=== PATIENT | female | born 1965 | race Caucasian/White ===

== ENCOUNTER 2020-07-05 17:12 | Outpatient (RCR) | payer OTHER, SELFPAY ==
[2020-07-05] MEDS: COVID-19 VACC, MRNA(PFIZER)/PF 30 MCG/0.3 ML SYRINGE IM (17:29)
[2020-07-26] MEDS: COVID-19 VACC, MRNA(PFIZER)/PF 30 MCG/0.3 ML SYRINGE IM (17:00)
== END 2020-07-05 23:59 ==
LOC: IMMUN 17:12
PROVIDERS: PCP Student in an Organized Health Care Education/Training Program; Referring Provider Family Medicine; Visit Provider Family Medicine
DX: Z23 Encounter for immunization (principal)
CPT/HCPCS: 0001A; 0002A; 91300

== ENCOUNTER → 2021-02-06 08:09 | Outpatient (CLI) | payer OTHER, SELFPAY ==
--- NOTE | 2021-02-06 | FLU_PTH ---
PATIENT: CAITLIN DALAL LOC: [facility] U#:[id number] AGE/SX: 59/F ROOM: RE02/06/[address]: Dr. Merritt Ace MD : 1965 BED: DIS: SPEC #: [id number] RECD: 02/07/21 08:29 STATUS: CHATA REMari #: [id number] JONATHAN: 02/06/21 00:[address]: Merritt Ace DEPT: CYTOLOGY RECD BY: Haider Cox ENTERED: 02/07/21 08:31 SP TYPE: Fluid OTHR DR: Dr. Jeffry Moreira DO Tissues: A - Thyroid gland, NOS B - Thyroid gland, NOS Procedures: Special Stain Group II Surgery Specimen Level IV Cytospin Fluid HEADER OPERATION: Ultrasound-guided fine needle aspiration left thyroid PRE-OP DIAGNOSIS: Thyroid nodule TISSUE SUBMITTED: A - FNA, left thyroid nodule fluid for cytology, B - FNA, left thyroid nodule x12 slides DIAGNOSIS CYTOLOGY A. Fine needle aspiration, left thyroid nodule (cytospin and cell block): Negative for malignant cells. See comment. B. Fine needle aspiration, left thyroid nodule (smears): Adequate for evaluation. Negative, consistent with benign follicular nodule. AM:antelmo 02/08/2021 COMMENT A. The specimen primarily contains blood and scattered polymorphous lymphocytes. CYTOLOGY STUDY Slides are reviewed. CYTOLOGY GROSS A - Received is 30 ml of red cloudy fluid labeled with the patient's name and and designated per the requisition as left thyroid nodule. Submitted for cytology preparation including cell block. B - Received are 12 smears labeled with the patient's name and designated per the requisition as left thyroid nodule. Submitted for staining. / antelmo 02/07/2021 TC:5 CPT: 99484, 98543, 31482
== END ==
PROVIDERS: PCP Student in an Organized Health Care Education/Training Program; Referring Provider Surgery; Visit Provider Surgery
DX: E04.1 Nontoxic single thyroid nodule (principal)
CPT/HCPCS: 88108; 88305; 88313

== ENCOUNTER 2021-05-17 10:03 | Emergency (ER) | payer OTHER, SELFPAY ==
[2021-05-17 10:05] VITALS: BP 164/88; PULSE 118; RESP 17; TEMP 35.4; O2SAT 98; BMI 36.0
--- NOTE | 2021-05-17 10:44 | EX.ED.DYSGE1 ---
HPI History of Present Illness Chief Complaint: Nosebleed Informant: patient Narrative Narrative: Patient is having right-sided epistaxis. She has had this off and on about every 6 months or so. She states a week ago she was cleaning her nose because she had mild congestion which is not uncommon. She used a twisted tissue in the nose. This started nosebleed. Since then she has had about 1 nosebleed a day. It lasts anywhere from a few minutes to this 1 is been going off and on for almost an hour. She is on no blood thinners including aspirin or nonsteroidals. She has not been having fevers chills. No other areas of bleeding. No pain. Compression makes it better. Nothing really makes it worse. She also does have forced air heat at home. She uses BiPAP at night. She just started using humidified option this week but that was after the nosebleed started. [facility] Medical History (Updated 05/17/21 @ 12:[address] Deo Dillon MD) BiPAP (biphasic positive airway pressure) dependence Diabetes Sleep apnea Thyroid nodule Home Medications omega-3 fatty acids-vitamin E [Fish Oil] 1 cap PO DAILY 05/17/21 [History Last Taken Unknown] Allergy/AdvReac Type Severity Reaction Status Date / Time amoxicillin Allergy Vomiting Verified 05/17/21 10:03 Social History Smoking Status: Never smoker ROS ROS ED Constitutional Constitutional ED: Denies chills or fever(s) ENT ENT ED: Reports other Details: See history of present illness ; Denies sore throat Respiratory/Chest Respiratory/Chest: Denies cough Gastrointestinal Gastrointestinal: Denies nausea or vomiting Genitourinary Genitourinary ED: Denies hematuria Integumentary Denies rash Allergic/Immunologic Allergic/Immunologic ED: Denies urticaria EXAM Physical Exam Const Vital Signs: 05/17/21 10:05 05/17/21 12:16 Temperature 95.7 F L Temperature Source Temporal Pulse Rate 118 H 91 Respiratory Rate 17 16 Blood Pressure 164/88 H 155/88 H Blood Pressure Mean 113 Pulse Ox 98 94 Oxygen Delivery Method Room Air Positive well nourished and well developed General Appearance ED: well developed and NAD; Negative for cyanotic, diaphoretic or pallor HEENT Reports moist mucous membranes HEENT Narrative: Patient has a nasal clamp on the naris. No active bleeding. Minimal pink coloration posterior pharynx. But no active bleeding. No facial abnormalities or rashes. No erythema or swelling. Eyes PERRL and EOMs intact bilaterally Neck supple and no JVD Resp normal respiratory effort Neuro oriented x3 Sensorium / Orientation: alert Psych mental status grossly normal Skin no rashes or lesions noted and no wounds Skin Narrative: No petechiae or purpura. General Skin Exam: Negative for pallor [facility] MDM MDM Narrative Medical decision making narrative: Procedure: Control of epistaxis right-sided: I discussed options with the patient. The nasal clamp was removed. There was some mild dried blood but no active bleeding anymore. We sprayed a mixture of Afrin and 4% lidocaine in both nostrils. We let this rest. I then examine the nose. The left side is completely clear. There is no dried or active blood. The right side has some dried blood and irritated anterior mucosa in Kiesselbach's plexus. No active bleeding. We then discussed options of treatment. We discussed putting a nasal rocket in. She would like to avoid this with her CPAP as well is just the discomfort. I explained that we could use spray thrombin. It statistically has the same success rate. We did spray the thrombin in that side. We have let her rest. She will be walked. As long as there is no rebleeding we will get her home. We had a long talk about ongoing care. She should avoid touching blowing heart putting anything in the nose. No pulling pushing lifting or straining. She should avoid the cold air as it is quite dry. She will get a coolmist humidifier and put it in her office during the day or what ever room she is and also her bedroom at night. If she has repeat bleeding she may need to follow-up. We will refer her to Dr. Ramires. Procedures Other Procedures Procedure(s): See MDM for control of epistaxis Discharge Plan Triage Chief Complaint: Nosebleed ED Provider: Deo Dillon Dx/Rx/DC Orders Clinical Impression: Right-sided epistaxis Instructions: Nosebleed Prescriptions: No Action Fish Oil 1,000 mg Capsule 1 cap PO DAILY RF: 0 Primary Care Provider: Jeffry Moreira Referrals: Wilder Ramires MD [STAFF PHYSICIAN] - 3-5 Days Jeffry Moreira DO [Primary Care Provider] - Disposition Disposition: Home, Self Care Discharge Date/Time: 05/17/21 12:18
[2021-05-17] MEDS: Lidocaine 4% 50 ML Bottle TOPICAL (10:50)
[2021-05-17] MEDS: Oxymetazoline 0.05% 1 SPRAY SPRAY.BTL 2 SPRAY NASAL (10:50)
[2021-05-17 12:16] VITALS: BP 155/88; PULSE 91; RESP 16; O2SAT 94
[2021-05-17] MEDS: Thrombin 5,000 IU Kit (PSA) 5,000 IU Vial 5000 IU TOPICAL (12:17)
== END 2021-05-17 12:18 | disposition home or self-care (01) ==
PROVIDERS: Emergency Provider Emergency Medicine; PCP Student in an Organized Health Care Education/Training Program; Visit Provider Emergency Medicine
DX: R04.0 Epistaxis (principal); G47.30 Sleep apnea, unspecified
CPT/HCPCS: 30901; 99282

== ENCOUNTER 2021-10-12 20:12 | Emergency (ER) | payer OTHER, SELFPAY ==
[2021-10-12 20:12] VITALS: BP 156/72; PULSE 98; RESP 16; TEMP 36.6; O2SAT 100; BMI 33.9
--- NOTE | 2021-10-12 20:34 | EX.ED.UPPERE ---
HPI History of Present Illness HPI Narrative: Right index finger laceration. Chief Complaint: Laceration Informant: patient Occured/Mechanism Mechanism/Context: Yes injury Onset/Context/Timing Onset: Today and Hours Context: Sudden Onset Timing: Continuous Current Severity: Mild Maximum Severity: Mild Narrative Narrative: 35-year-old diabetic female was cutting open a package when she has a lacerated the radial side of the proximal phalanx of her right index finger. She denies other complaints. Tetanus is up-to-date. Tetanus Immunization: 5-10 years Prior similar symptoms: No Recent Illness/Hospitalization: No PFSH PFSH Medical History BiPAP (biphasic positive airway pressure) dependence Diabetes Sleep apnea Thyroid nodule Home Medications omega-3 fatty acids-vitamin E 1,000 mg capsule 1 cap PO DAILY 05/17/21 [History Last Taken Unknown] Allergy/AdvReac Type Severity Reaction Status Date / Time amoxicillin Allergy Vomiting Verified 10/12/21 20:14 Social History Smoking Status: Never smoker ROS ROS ED ROS Narrative Denies recent illness. Review of Systems ROS Unobtainable: Denies due to encephalopathy Constitutional Constitutional ED: Denies chills Eyes Eyes: Denies blurry vision ENT ENT ED: Denies ear pain Cardiovascular Cardiovascular: Denies chest pain Respiratory/Chest Respiratory/Chest: Denies cough Gastrointestinal Gastrointestinal: Denies abdominal pain Genitourinary Genitourinary ED: Denies dysuria Musculoskeletal Musculoskeletal: Denies back pain Integumentary Denies abscess Neurologic Neurologic: Denies headache(s) Psychiatric Psychiatric: Denies anxiety Endocrine Endocrinology: Denies cold intolerance Hematologic/Lymphatic Hematologic/Lymphatic: Denies easy bleeding Allergic/Immunologic Allergic/Immunologic ED: Denies mouth swelling EXAM Physical Exam Narrative Exam Narrative: Appearing 55-year-old female. Vital signs stable afebrile. Right index finger has about 1-1/2 to 2 cm laceration. It does not gape. There is no active bleeding. Has full flexion-extension to the right index finger. There is no signs of infection or foreign body. Otherwise exam unremarkable. Const Vital Signs: 10/12/21 20:12 Temperature 97.9 F Temperature Source Temporal Pulse Rate 98 Respiratory Rate 16 Blood Pressure 156/72 H Blood Pressure Mean 100 Pulse Ox 100 Oxygen Delivery Method Room Air Positive well nourished and well developed; Negative for cachectic, contractures or unkempt General Appearance ED: well developed; Negative for unkempt, cachectic or contractures Nutritional Appearance: Negative for cachectic HEENT Reports moist mucous membranes normocephalic and atraumatic; Negative for trauma or tenderness Eyes PERRL and EOMs intact bilaterally Neck full ROM and supple General: Negative for tenderness Lymph Lymphatic: Negative for other Chest Wall inspection of chest normal and palpation of chest normal Resp normal respiratory effort Cardio regular rate, regular rhythm, S1 normal heart sound, S2 normal heart sound and no murmurs GI non-tender, non-distended and no masses Extremity normal to inspection and full ROM Extremity Narrative: Laceration right index finger. Full range of motion. No active bleeding. Dried blood. Neuro oriented x3, moves all extremities, no focal motor deficits and no sensory deficits noted Sensorium / Orientation: alert, oriented to person, oriented to place and oriented to time; Negative for orientation impaired, lethargic or stuporous Motor Exam: strength 5/5 throughout Psych mental status grossly normal Appearance: Negative for unkempt Attitude: No agitated Mood & Affect: Negative for depressed or anxious Skin Lesions: no lesions Rashes: no rashes Trauma: laceration; Negative for no lacerations or abrasions MDM MDM MDM Narrative Medical decision making narrative: Right index finger laceration. It superficial not deep. Area be cleaned. Dermabond and Steri-Stripped and she will be discharged to home. Instructed on wound care. Discharge Plan Triage Chief Complaint: Laceration ED Provider: Brooks Duong Dx/Rx/DC Orders Clinical Impression: Laceration of finger, index, History of diabetes mellitus Instructions: ED Laceration, Extremity: Skin Glue Prescriptions: No Action Fish Oil 1,000 mg Capsule 1 cap PO DAILY Primary Care Provider: Jeffry Moreira Referrals: Jeffry Moreira DO [Primary Care Provider] - As Needed Activity Restrictions/Additional Instructions: Watch for signs of infection such as redness, swelling, streaks, fever or pus is seen reevaluated. Steri-Strips can come off in a week if that will fall off on their own. Disposition Disposition: Home, Self Care
== END 2021-10-12 20:46 | disposition home or self-care (01) ==
PROVIDERS: Emergency Provider Emergency Medicine; PCP Student in an Organized Health Care Education/Training Program; Visit Provider Emergency Medicine
DX: S61.210A Laceration without foreign body of right index finger without damage to nail, initial encounter (principal); G47.30 Sleep apnea, unspecified; X58.XXXA Exposure to other specified factors, initial encounter
CPT/HCPCS: 99283

== ENCOUNTER 2024-07-23 17:23 | Observation (INO) | payer OTHER, SELFPAY ==
[2024-07-23] VITALS (9 sets, daily range): BP systolic 141–174; BP diastolic 74–99; PULSE 81–93; RESP 16–24; TEMP 36.4–36.9; O2SAT 95–99; BMI 35.0; BMI 34.7
--- NOTE | 2024-07-23 17:44 | EKG12_ITS ---
Test Reason : Blood Pressure : */* mmHG Vent. Rate : 93 BPM Atrial Rate : 93 BPM P-R Int : 174 ms QRS Dur : 80 ms QT Int : 348 ms P-R-T Axes : 45 -19 60 degrees QTcB Int : 432 ms Normal sinus rhythm Cannot rule out Anterior infarct , age undetermined Abnormal ECG Confirmed by KAREN BRANNON, HANS ([id number]), sports editor GRADY MCDONOUGH ([id number]) on 07/24/2024 9:46:49 AM Referred By: Confirmed By: HANS JONES MD
--- NOTE | 2024-07-23 17:44 | CT_ITS ---
EXAM: STROKE BRAIN/HEAD WITHOUT CONT CLINICAL HISTORY: 58 y/o F with NEURO DEFICIT, ACUTE, STROKE SUSPECTED. COMPARISON: None. TECHNIQUE: Routine CT imaging of the head without IV contrast. Additional multiplanar reformats were obtained. Dose reduction techniques were used including intermediate exposure control (AEC),iterative reconstruction technique, and/or mA and/or KV dose adjustments based on patient's size. FINDINGS: No acute intracranial hemorrhage or herniation. Minimal scattered supratentorial white matter hypodensities. The [place]-white matter interfaces are otherwise maintained. No ventriculomegaly. The basal cisterns are patent. The orbits, visualized paranasal sinuses and mastoids are unremarkable. No acute calvarial fracture or scalp hematoma. CT/STROKE Brain/Head without Cont IMPRESSION: No acute intracranial finding. Reading Location: [id number]
--- NOTE | 2024-07-23 17:45 | CT_ITS ---
PROCEDURE: STROKE CTA HEAD AND NECK W/CON 07/23/2024 REASON FOR EXAM: NEURO DEFICIT, ACUTE, STROKE SUSPECTED TECHNIQUE: CTA imaging of the head and neck from the aortic arch to the skull vertex with intravenous contrast. Coronal and Sagittal reconstruction series were provided. 3D, 3D post processing, 3D reconstructions, Maximum intensity projection (MIPs) Volume rendering and Shaded surface rendering was provided. CONTRAST: Isovue 370 VOLUME: 100 mL One or more dose reduction techniques were used (e.g., Automated exposure control, adjustment of the mA and/or kV according to patient size, use of iterative reconstruction technique). RADIATION DOSE SUMMARY: CTDlvol: 150 mGy DLP: 1500 mGycm COMPARISON: Same-day CT head. FINDINGS: See same day CT head for discussion of nonvascular findings. Patent, three-vessel aortic arch without calcification. The bilateral vertebral arteries are widely patent. No calcific plaque of the bilateral cervical carotid arteries. 0% stenosis by NASCET criteria. The bilateral carotid siphons are widely patent. The bilateral anterior, middle and posterior cerebral arteries are widely patent. No focal stenosis or occlusion. No aneurysm or AVM. Major venous structures: Unremarkable. Other findings: Cervical spondylosis. Prior dental amalgams. CT/STROKE CTA Head AND Neck W/Con IMPRESSION: 1. No large vessel occlusion, aneurysm or AVM. 2. No significant stenosis or calcific plaque. Reading Location: [facility]
--- NOTE | 2024-07-23 17:47 | EX.ED.DYSGE1 ---
HPI History of Present Illness Chief Complaint: Dizziness Narrative Narrative: Patient is a 58-year-old female with a past medical history of peripheral vertigo, diabetes, OSIRIS who presented to the emergency department the chief complaint of dizziness. Patient states that this felt different than her typical vertigo symptoms. She states that yesterday at 4:30 AM she woke up and she was extremely dizzy she states that she thought her cat went back to bed she states that when she woke up at 6:30 AM she was still very dizzy she states that she went to bed the evening before that at 10:30 PM was completely normal. Patient states that she tried to take Antivert this morning that she had leftover which seemed to help her symptoms some. She states that anytime she gets up and tries to walk she is very dizzy and has difficulty walking states if she turns her head left or right she is dizzy as well. Patient states that this is once again slightly different than her typical vertigo. [facility] Medical History (Updated 07/23/24 @ 22:[address] Juan Miguel Cummings DO) Obesity OSIRIS treated with BiPAP Anxiety and depression BPPV (benign paroxysmal positional vertigo) HLD (hyperlipidemia) Thyroid nodule Diabetes Home Medications ?Medication ?Instructions ?Recorded ?Last Taken ?Type omega-3 fatty acids-vitamin E 1 cap PO DAILY 05/17/21 Unknown History 1,000 mg capsule dulaglutide 1.5 mg/0.5 mL 1.5 mg subcut QWEEK 07/23/24 Unknown History subcutaneous pen injector (Trulicity) escitalopram oxalate 20 mg tablet 20 mg PO DAILY 07/23/24 Unknown History metformin 500 mg tablet PO 07/23/24 Unknown History rosuvastatin 10 mg tablet 10 mg PO QHS 07/23/24 Unknown History Allergy/AdvReac Type Severity Reaction Status Date / Time amoxicillin Allergy Vomiting Verified 07/23/24 17:24 Social History Smoking Status: Never smoker ROS ROS ED ROS Narrative Constitutional: Complains of dizziness as noted above denies fevers or chills, headaches Eyes: Denies double vision blurry vision change in vision Cardiovascular: Denies chest pain or palpitations Respiratory: Denies cough shortness of breath Abdomen: Complains of nausea denies vomiting or diarrhea : Denies any urinary symptoms Neurological: Denies numbness, weakness, tingling Musculoskeletal: Denies back pain Skin: Denies rashes or lesions EXAM Physical Exam Narrative Exam Narrative: General: Patient is lying in bed rest comfortably did not appear to be acute distress Head: Atraumatic, normocephalic Eyes: PERRL bilateral, EOMI bilateral, no conjunctival injection noted Neck: Soft, supple, trachea midline Cardiovascular: Regular rate and rhythm no murmurs gallops rubs noted Respiratory: Clear to auscultation bilaterally Abdomen: Soft, nondistended, nontender to palpation Extremities: +5/5 strength noted in the bilateral upper and lower extremities, radial pulses +2/4 in the bilateral extremities, no pedal edema no exam Neurological: Patient following commands knew that she was at [facility] year is 2024. NIH of 0 GCS 15. Patient completed finger-nose and [id number] test bilaterally Skin: Warm, dry, intact no rashes or lesions noted Const Vital Signs: 07/23/24 17:24 07/23/24 17:44 07/23/24 18:23 Temperature 98.5 F Temperature Source Oral Pulse Rate 93 85 Respiratory Rate 16 20 H Blood Pressure 174/99 H 141/86 H Blood Pressure Mean 124 104 Pulse Ox 98 97 Oxygen Delivery Method Room Air Room Air Room Air 07/23/24 19:20 07/23/24 20:00 07/23/24 21:00 Temperature Temperature Source Pulse Rate 92 82 86 Respiratory Rate 18 24 H 20 H Blood Pressure 141/77 H 155/82 H 148/74 H Blood Pressure Mean 98 106 98 Pulse Ox 95 97 97 Oxygen Delivery Method Room Air Room Air MDM [facility] MDM Narrative Medical decision making narrative: Patient is a 58-year-old female who presented to the emergency department the chief complaint of dizziness and vertigo type symptoms. Once again the patient states that her vertigo symptoms are different than her typical vertigo symptoms therefore we will work this up further. On the differential diagnose includes but not limited to large vessel occlusion, ischemic stroke, intracranial hemorrhage, carotid artery dissection. Once workup is obtained reviewed she will be reevaluated. Patient be given Antivert and Zofran. hip patient CBC reviewed and showed no evidence leukocytosis white blood count of 8.9, hemoglobin 14.5, plate count was noted be 306. Patient INR normal at 0.9, PT of 12.3. Patient sodium normal 140, potassium low at 3.9, creatinine was 0.56. Patient's troponin was less than 6 with a delta troponin of less than 6 patient's EKG reviewed and showed sinus rhythm with a rate of [address] head and brain without contrast reviewed showed no acute intracranial finding. Patient CTA head and neck showed no large vessel occlusion aneurysm or AVM. No significant stenosis or calcific plaque. On reevaluation the patient she is feeling better however given that she states that this felt different than her typical vertigo will discussed with hospitalist for admission. Patient given 325 mg aspirin. Patient case discussed with the hospitalist Dr. Boykin who accept patient for admission. Patient notified is agreeable to plan all questions were answered. Lab Data Labs: Laboratory Results - last 24 hr 07/23/24 07/23/24 18:06 20:20 WBC 8.9 RBC 4.61 Hgb 14.5 Hct 42.9 MCV 93.1 MCH 31.5 MCHC 33.8 RDW Std Deviation 41.2 RDW Coeff of Mari 12.0 Plt Count 306 MPV 8.9 Immature Gran % (Auto) 0.500 Neut % (Auto) 56.7 Lymph % (Auto) 33.6 Mason % (Auto) 5.9 Eos % (Auto) 2.6 Baso % (Auto) 0.7 Absolute Neuts (auto) 5.0 Absolute Lymphs (auto) 2.98 Nucleated RBC % 0 PT 12.3 INR 0.9 APTT 26.1 Sodium 140 Potassium 3.9 Chloride 101 Carbon Dioxide 26.3 Anion Gap 13 BUN 7 Creatinine 0.56 L Estim Creat Clear Calc 129.57 Est GFR (MDRD) Non-Af 106 BUN/Creatinine Ratio 13.0 Glucose 187 H Calcium 10.1 Troponin T High Sens < 6 Troponin T Hi Sens 2 Hr < 6 Radiography Diagnostic Testing: Clinical Impression(s) from Imaging Studies Brain CT 07/23/24 17:44 IMPRESSION: No acute intracranial finding. Reading Location: [id number] Head/Neck CTA 07/23/24 17:45 IMPRESSION: 1. No large vessel occlusion, aneurysm or AVM. 2. No significant stenosis or calcific plaque. Reading Location: [facility] Discharge Plan Triage Chief Complaint: Dizziness ED Provider: Juan Miguel Cummings Dx/Rx/DC Orders Clinical Impression: Vertigo Prescriptions: No Action Fish Oil 1,000 mg Capsule 1 cap PO DAILY metformin 500 mg tablet PO escitalopram oxalate 20 mg tablet 20 mg PO DAILY rosuvastatin 10 mg tablet 10 mg PO QHS Trulicity 1.5 mg/0.5 mL pen injector 1.5 mg subcut QWEEK Primary Care Provider: Jeffry Moreira Referrals: Jeffry Moreira DO [Primary Care Provider] - Print Language: Belgian Disposition Disposition: Acute Care Hospital [facility]
[2024-07-23] MEDS: Meclizine HCl 25 MG Tablet PO (18:11)
[2024-07-23] MEDS: 0.9% Normal Saline (1000mL) 1,000 ML 999 ML IV (18:11)
[2024-07-23 18:19] LABS: Absolute Lymphocyte Count 2.98 X10^3/uL (0.83-4.51); Basophil# 0.06 X10^3/uL; Basophil% 0.7 % (0-1); Eosinophil# 0.23 X10^3/uL; Eosinophils% 2.6 % (0-5); Hematocrit 42.9 % (37-47); Hemoglobin 14.5 g/dL (12.0-15.0); Lymphocyte # 2.98 X10^3/ul (0.83-4.51); Lymphocyte % 33.6 % (19-41); Mean Corp Hgb Conc 33.8 g/dL (32-36); Mean Corpuscular Hgb 31.5 pg (27.0-32.0); Mean Corpuscular Volume 93.1 fL (81-99); Mean Platelet Vol. 8.9 fl (6.2-12.0); Monocyte# 0.52 X10^3/uL; Monocyte% 5.9 % (0-10); NRBC Flagged by Analyzer 0 % (0-5); Neutrophil # 5.03 X10^3/uL (2.7-7.7); Neutrophil % 56.7 % (47-70); Platelet Count 306 K/mm3 (150-450); RBC Distribution Width SD 41.2 fl (35.1-43.9); Red Blood Count 4.61 M/mm3 (4.2-5.4); White Blood Count 8.9 K/mm3 (4.4-11.0)
[2024-07-23 18:47] LABS: International Normalized Ratio 0.9; Partial Thromboplast Time 26.1 Seconds (24.1-36.2); Prothrombin Time (Protime)PT. 12.3 SECONDS (11.7-14.9)
[2024-07-23 18:54] LABS: Anion Gap 13 (5-15); BUN 7 mg/dL (4-19); Calcium,Total 10.1 mg/dL (7.6-11.0); Carbon Dioxide 26.3 mmol/L (21.0-32.0); Chloride 101 mmol/L (98-108); Creatinine, Serum 0.56 mg/dL (0.70-1.20); EST Glomerular Filtration Rate 106 (>60); Estimated Creatinine Clearance 129.57 ml/min (50-250); Glucose 187 mg/dL (70-99); Potassium 3.9 mmol/L (3.3-5.1); Sodium Level 140 mmol/L (133-145); Troponin T High Sensitivity < 6 ng/L (<=14)
[2024-07-23 20:43] LABS: Troponin T High Sens 2 HR < 6 ng/L (<=14)
--- NOTE | 2024-07-23 21:46 | HP.PCM.HOS_ITS ---
HPI - General General Date of Admission: 07/23/24 Date of Service: 07/23/24 Chief Complaint: Dizziness, vertigo, intractable HPI Narrative The patient is a 58 y/o F w/ PMHx: Obesity, OSIRIS on BIPAP q HS, Diabetes mellitus type II, HLD, Anxiety and Depression, BPPV who presents to the [facility] ED on 07/23/2024 with history of onset vertiginous type symptoms starting at 4:30 in the morning the day prior awakening very dizzy but was able to fall back asleep again awakening at 6:30 AM with persistent dizziness but was able to function during the day and reportedly returned to normal at 10:30 PM in the evening however she had recurrent symptoms in the morning and attempted to take Antivert that she had leftover but despite this anytime she attempted to get up and walk she remains dizzy reporting also that if she turns her head to the either the left of the right she also has dizziness even if she is not up and moving again slightly different than her baseline previous typical vertiginous type symptoms prompting eventual ED evaluation to be cautious. Patient notes her normal presentation with vertigo may last a week but is less severe and also primarily with position changes of the head primarily lifting her head up and down. Workup in the ED included T98.5, heart rate 93, BP 174/99, respiratory rate 16, 98% on room air with most recent repeat vitals heart rate 82, BP 155/82, respiratory rate 24, 97% on room air, CBC with WBC 8.9, he 1 14.5, platelet 306 without marked shift, unremarkable coags, BMP unremarkable aside glucose 187, troponin 6 with repeat delta 6, CT of the brain with no acute intracranial findings, CTA head neck with no large vessel occlusion, aneurysm or AVM with no significant stenosis or calcific plaque, EKG with SR without acute evidence of ischemia. In the ED patient ministered 1 L normal saline, Zofran 4 mg IV x 1, meclizine 25 mg p.o. x 1. [facility] Medical History Obesity OSIRIS treated with BiPAP Anxiety and depression BPPV (benign paroxysmal positional vertigo) HLD (hyperlipidemia) Thyroid nodule Diabetes Home Medications ?Medication ?Instructions ?Recorded ?Last Taken ?Type omega-3 fatty acids-vitamin E 1 cap PO DAILY 05/17/21 Unknown History 1,000 mg capsule dulaglutide 1.5 mg/0.5 mL 1.5 mg subcut QWEEK 07/23/24 Unknown History subcutaneous pen injector (Trulicity) escitalopram oxalate 20 mg tablet 20 mg PO DAILY 07/23 Unknown History metformin 500 mg tablet PO 07/23/24 Unknown History rosuvastatin 10 mg tablet 10 mg PO QHS 07/23/24 Unknow n History Allergy/AdvReac Type Severity Reaction Status Date / Time amoxicillin Allergy Vomiting Verified 07/23/24 17:24 Family History (Updated 07/23/24 @ 22:[address] Ivett Boykin MD) Mother CVA (cerebral vascular accident) Hypertension Diabetes Father Lymphoma Surgical History (Updated 07/23/24 @ 22:[address] Ivett Boykin MD) History of bilateral tubal ligation History of bunionectomy of left great toe S/P cholecystectomy H/O of hemilaminectomy Social History (Updated 07/23/24 @ 22:[address] Ivett Boykin MD) household members: none Smoking Status: Never smoker alcohol intake: current alcohol intake frequency: holidays/special occasions only substance use type: does not use ROS ROS Narrative Admission Review of Systems: CONSTITUTIONAL: No weight loss, fever, chills, weakness or fatigue. HEENT: + Vertiginous symptoms. Eyes: No visual loss, blurred vision, double vision or yellow sclerae. Ears, Nose, Throat: No hearing loss, sneezing, congestion, runny nose or sore throat. SKIN: No rash or itching, lesions, wounds. CARDIOVASCULAR: No chest pain, chest pressure or chest discomfort, palpitations, edema, orthopnea, syncopal events. RESPIRATORY: No shortness of breath, cough or sputum, wheezing, hemoptysis. GASTROINTESTINAL: + anorexia, nausea with vertiginous symptoms. No vomiting or diarrhea, abdominal pain, melena, BRBPR. GENITOURINARY: No dysuria, frequency, urgency or retention. NEUROLOGICAL: + Vertigo. No headache, syncope, paralysis, ataxia, numbness or tingling in the extremities, focal weakness, change in bowel or bladder control, seizure. MUSCULOSKELETAL: + muscle, back pain, joint pain or stiffness. HEMATOLOGIC: No anemia, bleeding or bruising. LYMPHATICS: No enlarged nodes. No history of splenectomy. PSYCHIATRIC: + history of anxiety and depression. ENDOCRINOLOGIC: No reports of sweating, cold or heat intolerance. No polyuria or polydipsia. ALLERGIES: No history of asthma, hives, eczema or rhinitis. Vital Signs Vital Signs Vital Signs: 07/23/24 17:24 07/23/24 17:44 07/23/24 18:23 Temperature 98.5 F Temperature Source Oral Pulse Rate 93 85 Respiratory Rate 16 20 H Blood Pressure 174/99 H 141/86 H Blood Pressure Mean 124 104 Pulse Ox 98 97 Oxygen Delivery Method Room Air Room Air Room Air 07/23/24 19:20 07/23/24 20:00 07/23/24 21:00 Temperature Temperature Source Pulse Rate 92 82 86 Respiratory Rate 18 24 H 20 H Blood Pressure 141/77 H 155/82 H 148/74 H Blood Pressure Mean 98 106 98 Pulse Ox 95 97 97 Oxygen Delivery Method Room Air Room Air Weight Weight: 217 lb Body Mass Index (BMI) 35.0 Physical Exam Narrative Physical Examination: General: Awake, alert, oriented x 3 and cooperative, seated upright in ED bed in no apparent distress, notes complete resolution of vertigo. Skin: Normal color, normal turgor, no icterus, no cyanosis. HEENT: AT/NC, EOMI, PERRLA, MMM, no carotid bruits or JVD noted. Lungs: CTA bilaterally, moderate effort, mild decrease BL bases, no rales, ronchi or wheezing. Heart: Regular rate and rhythm; no gallop, rub audible. Abdomen: Soft, obese, NTTP, ND, normal BS, no appreciated HSM. Extremities: No cyanosis, clubbing, or edema. Neurological: Patient awake, alert, oriented as noted, cognitive function intact; pupils equally reactive to light and accommodation, cranial nerves grossly normal, moving all 4 extremities, no focal deficits, strength preserved, FTN and HTS appropriate, sensation intact, negative Babinski, no appreciated nystagmus, no reproducible vertigo. Psychiatric: Affect appears normal, no acute evidence of depressive or anxiety feelings but does have underlying history. Results Lab / Micro Data 07/23/24 18:06 07/23/24 18:06 Labs: Laboratory Results - last 24 hr 07/23/24 18:06: WBC 8.9, RBC 4.61, Hgb 14.5, Hct 42.9, MCV 93.1, MCH 31.5, MCHC 33.8, RDW Std Deviation 41.2, RDW Coeff of Mari 12.0, Plt Count 306, MPV 8.9, Immature Gran % (Auto) 0.500, Neut % (Auto) 56.7, Lymph % (Auto) 33.6, Humphreys % (Auto) 5.9, Eos % (Auto) 2.6, Baso % (Auto) 0.7, Absolute Neuts (auto) 5.0, Absolute Lymphs (auto) 2.98, Nucleated RBC % 0, PT 12.3, INR 0.9, APTT 26.1, Sodium 140, Potassium 3.9, Chloride 101, Carbon Dioxide 26.3, Anion Gap 13, BUN 7, Creatinine 0.56 L, Estim Creat Clear Calc 129.57, Est GFR (MDRD) Non-Af 106, BUN/Creatinine Ratio 13.0, Glucose 187 H, Calcium 10.1, Troponin T High Sens < 6 07/23/24 20:20: Troponin T Hi Sens 2 Hr < 6 Imaging Radiology Impression Brain CT 07/23/24 17:44 IMPRESSION: No acute intracranial finding. Reading Location: [facility] Head/Neck CTA 07/23/24 17:45 IMPRESSION: 1. No large vessel occlusion, aneurysm or AVM. 2. No significant stenosis or calcific plaque. Reading Location: [facility] Assessment & Plan Assessment/Plan (1) Vertigo: PLAN: Plan The patient is a 58 y/o F w/ PMHx: Obesity, OSIRIS on BIPAP q HS, Diabetes mellitus type II, HLD, Anxiety and Depression, BPPV who presents to the [facility] ED on 07/23/2024 with history of onset vertiginous type symptoms starting at 4:30 in the morning the day prior awakening very dizzy but was able to fall back asleep again awakening at 6:30 AM with persistent dizziness but was able to function during the day and reportedly returned to normal at 10:30 PM in the evening however she had recurrent symptoms in the morning and attempted to take Antivert that she had leftover but despite this anytime she attempted to get up and walk she remains dizzy reporting also that if she turns her head to the either the left of the right she also has dizziness even if she is not up and moving again slightly different than her baseline previous typical vertiginous type symptoms prompting eventual ED evaluation. #1. Persistent vertiginous symptoms different than baseline previous vertigo with BPPV concerning for possible posterior CVA: Will admit to PCU to be cautious, will obtain MRI Brain, ECHO, PT/OT/Speech/Nutrition evaluation per protocol. Will allow permissive HTN, maintain on asa w/ FS x 1 now and then 81 mg following in AM, maintain on statin therapy, maintain on fall precautions. Mag, TSH, FLP, HgbA1c requested. Maintain on fall and aspiration precautions. Will have meclizine available but low threshold if necessary to attempt Valium as well pending response. #2. Diabetes mellitus type II: Holding dulaglutide injection and metformin, hemoglobin A1c requested per protocol, nutrition consulted per protocol, maintain on ADA diet, accu checks w/ ISS. #3. Anxiety and depression: We will continue patient home escitalopram regimen. #4. Hyperlipidemia: Continue home statin regimen. AM FLP. #5. Obesity: Weight loss and lifestyle changes encouraged. #6. OSIRIS: BiPAP nightly. #7. DVT prophylaxis: Lovenox. #8. CODE status: Patient HCPOA and living will are not in place but she notes her daughter if necessary would be her medical decision-maker if she was unable. Discussed CODE status at length including difference between FULL code, DNR-CCA and DNR-CC status. Following discussions about the differences in these status, requested Full Code status. Charges/Coding Visit Charges Inpatient E&M: 48897 Init Hosp L2
[2024-07-23] MEDS: Aspirin 325 MG Tablet PO (22:27)
[2024-07-23 22:33] LABS: Troponin T High Sens 4 HR < 6 ng/L (<=14)
--- NOTE | 2024-07-23 22:39 | ECHOD_ITS ---
Reason For Study Reason For Study: TIA/CVA Procedure This was a 2D Doppler, Color Flow transthoracic echocardiogram. Exam performed portable in patient room. Left Ventricle Normal LV size. Left ventricular systolic function is normal. The left ventricular ejection fraction is 60 %. No regional wall motion abnormalities noted. Right Ventricle Normal RV size. Normal systolic function. Atria Normal left atrium. Normal right atrium. Bubble contrast study is negative for PFO/ASD. Tricuspid Valve Normal tricuspid valve. Aortic Valve Trisinus/trileaflet aortic valve. Great Vessels Normal aortic root. Pericardium/Pleural No pericardial effusion. Medication Performed a rapid injection of agitated mix of 9 cc saline and 1cc air to assess for atrial septal defect. MMode/2D Measurements & Calculations LVIDd: 4.4 cm IVSd: 0.81 cm Ao root diam: 3.6 cm LVIDs: 2.9 cm LVPWd: 0.87 cm FS: 34.3 % LAV(MOD-sp2): 42.5 ml LVAd ap2: 25.9 cm2 SV(MOD-sp2): 41.2 ml LVLd ap2: 8.0 cm SI(MOD-sp2): 19.9 ml/m2 EDV(MOD-sp2): 70.8 ml EDV(sp2-el): 71.4 ml LVAs ap2: 15.9 cm2 LVLs ap2: 7.4 cm ESV(MOD-sp2): 29.6 ml ESV(sp2-el): 29.0 ml EF(MOD-sp2): 58.2 % LA dimension(2D): 4.0 cm TAPSE: 2.2 cm Doppler Measurements & Calculations MV E max tristen: 80.2 cm/sec Lat Peak E' Tristen: 9.3 cm/sec Med Peak E' Tristen: 9.8 cm/sec MV A max tristen: 96.2 cm/sec E/E' lat: 8.6 E/E' med: 8.2 MV E/A: 0.83 Ao V2 max: 128.9 cm/sec LV V1 max: 98.5 cm/sec PA V2 max: 94.3 cm/sec Ao max P.6 mmHg LV V1 max P.9 mmHg Ao V2 mean: 93.6 cm/sec LV V1 mean P.5 mmHg Ao mean P.9 mmHg LV V1 mean: 75.0 cm/sec Ao V2 VTI: 31.0 cm LV V1 VTI: 22.3 cm AV (velocity ratio): 0.72 ECHO/Echo Complete Interpretation Summary Normal LV size. Left ventricular systolic function is normal. The left ventricular ejection fraction is 60 %. Bubble contrast study is negative for PFO/ASD. Ordering Physician: Ivett Boykin Referring Physician: Jeffry Moreira Performed By: Suzi Andrew RDCS
[2024-07-23 22:57] LABS: Magnesium 1.6 mg/dL (1.5-2.2)
[2024-07-23] MEDS: Aspirin 81 MG TAB.CHEW PO (23:12)
[2024-07-23] MEDS: Atorvastatin Calcium 20 MG Tablet PO (23:12)
[2024-07-23] MEDS: 0.9% Normal Saline (1000mL) 1,000 ML 100 ML IV (23:14)
[2024-07-23] MEDS: 0.9% Saline Lock 10 ML Syringe IV (23:14)
[2024-07-23 23:33] LABS: Bedside Glucose 136 mg/dL (74-106)
[2024-07-24 02:50] VITALS: BP 141/79; PULSE 91; RESP 18; TEMP 36.1; O2SAT 95
[2024-07-24 05:55] LABS: Absolute Lymphocyte Count 2.74 X10^3/uL (0.83-4.51); Absolute Neutrophil Count 3.2 X10^3/uL (2.0-7.7); Basophil# 0.03 X10^3/uL; Basophil% 0.4 % (0-1); Eosinophil# 0.17 X10^3/uL; Eosinophils% 2.5 % (0-5); Hematocrit 36.8 % (37-47); Hemoglobin 12.3 g/dL (12.0-15.0); Lymphocyte # 2.74 X10^3/ul (0.83-4.51); Mean Corp Hgb Conc 33.4 g/dL (32-36); Mean Corpuscular Hgb 31.9 pg (27.0-32.0); Mean Corpuscular Volume 95.3 fL (81-99); Mean Platelet Vol. 9.2 fl (6.2-12.0); Monocyte# 0.47 X10^3/uL; NRBC Flagged by Analyzer 0 % (0-5); Neutrophil # 3.23 X10^3/uL (2.7-7.7); Neutrophil % 48.5 % (47-70); Platelet Count 249 K/mm3 (150-450); Red Blood Count 3.86 M/mm3 (4.2-5.4); White Blood Count 6.7 K/mm3 (4.4-11.0)
--- NOTE | 2024-07-24 05:55 | MRI_ITS ---
PROCEDURE: BRAIN WITHOUT CONTRAST 07/24/2024 REASON FOR EXAM: VERTIGO, ? TIA/CVA TECHNIQUE: Brain MRI without intravenous contrast with additional dedicated imaging of the IACs. CONTRAST: None. COMPARISON: CTA neck from 07/24/2019 FINDINGS: Brain: No mass, mass effect or midline shift. He-white junction is intact. No significant white matter signal abnormalities Diffusion weighted images: Ventricles: Ventricles and sulci are probably normal limits for age. Major Intracranial Vessels: Vertebrobasilar system and anterior circulation demonstrate normal flow voids Sinuses: Predominantly clear Mastoids: No effusions. MRI/Brain without Contrast IMPRESSION: No MR evidence of acute brain pathology Reading Location: [facility]
[2024-07-24 06:20] VITALS: BP 140/80; PULSE 95; RESP 18; TEMP 36.4; O2SAT 94
[2024-07-24] MEDS: Insulin Lispro 100 UNIT/ML INSULN.PEN SC ×2 (06:26→11:48)
[2024-07-24 06:40] LABS: Bedside Glucose 213 mg/dL (74-106)
[2024-07-24 06:50] LABS: Cholesterol 129 mg/dL (<=200); High Density Lipoprotein 51 mg/dL; Low Density Lipoprotein Calc. 1 mg/dL; Triglycerides 385 mg/dL; Very Low Density Lipoprotein 77 mg/dL (5-40); cholesterol:hdl ratio screen 2.54
[2024-07-24 06:56] LABS: ALB/GLOB Ratio 1.5 RATIO (0.9-2.4); AST(SGOT) 18 U/L (<=31); Alanine Aminotransfer ALT/SGPT 20 U/L (<=34); Albumin, Serum 3.6 g/dL (3.5-5.0); Alkaline Phosphatase 61 U/L (35-104); Anion Gap 11 (5-15); BUN 8 mg/dL (4-19); Carbon Dioxide 23.9 mmol/L (21.0-32.0); Chloride 106 mmol/L (98-108); Creatinine, Serum 0.61 mg/dL (0.70-1.20); EST Glomerular Filtration Rate 103 (>60); Estimated Creatinine Clearance 118.55 ml/min (50-250); Globulin 2.4 g/dL (2.2-4.2); Glucose 242 mg/dL (70-99); Potassium 3.8 mmol/L (3.3-5.1); Sodium Level 141 mmol/L (133-145)
[2024-07-24 07:07] LABS: Total Bilirubin 0.48 mg/dL (0.00-1.30)
[2024-07-24 08:38] LABS: Hemoglobin A1c 6.9 % (<=5.6)
--- NOTE | 2024-07-24 08:43 | PN.HOSP_ITS ---
Reason for Visit Reason for Visit: Diagnoses Dizziness and giddiness (07/23/24) Objective Data Objective Data Vital Signs: Vital Signs Temp Pulse Resp BP Pulse Ox O2 Del Method 97.5 F L 95 18 140/80 H 94 Room Air 07/24/24 06:20 07/24/24 06:20 07/24/24 06:20 07/24/24 06:20 07/24/24 06:20 07/24/24 06:20 Oxygen Delivery Method Room Air Weight: 215 lb 9.793 oz Body Mass Index (BMI) 34.7 Intake & Output: Intake and Output for Last 24 Hours 07/22/24 07/23/24 07/24/24 23:59 23:59 23:59 Intake Total 1000 / 1000 Balance 1000 / 1000 Lab / Micro Data 07/24/24 05:35 07/24/24 05:35 Labs: Laboratory Results - last 24 hr 07/23/24 18:06: WBC 8.9, RBC 4.61, Hgb 14.5, Hct 42.9, MCV 93.1, MCH 31.5, MCHC 33.8, RDW Std Deviation 41.2, RDW Coeff of Mari 12.0, Plt Count 306, MPV 8.9, Immature Gran % (Auto) 0.500, Neut % (Auto) 56.7, Lymph % (Auto) 33.6, Rogers % (Auto) 5.9, Eos % (Auto) 2.6, Baso % (Auto) 0.7, Absolute Neuts (auto) 5.0, Absolute Lymphs (auto) 2.98, Nucleated RBC % 0, PT 12.3, INR 0.9, APTT 26.1, Sodium 140, Potassium 3.9, Chloride 101, Carbon Dioxide 26.3, Anion Gap 13, BUN 7, Creatinine 0.56 L, Estim Creat Clear Calc 129.57, Est GFR (MDRD) Non-Af 106, BUN/Creatinine Ratio 13.0, Glucose 187 H, Calcium 10.1, Troponin T High Sens < 6 07/23/24 20:20: Troponin T Hi Sens 2 Hr < 6 07/23/24 22:10: Magnesium 1.6, Troponin T Hi Sens 4Hr < 6 07/23/24 23:11: POC Glucose 136 H 07/24/24 05:35: WBC 6.7, RBC 3.86 L, Hgb 12.3, Hct 36.8 L, MCV 95.3, MCH 31.9, MCHC 33.4, RDW Std Deviation 42.0, RDW Coeff of Mari 12.0, Plt Count 249, MPV 9.2, Immature Gran % (Auto) 0.600, Neut % (Auto) 48.5, Lymph % (Auto) 41.0, Rogers % (Auto) 7.0, Eos % (Auto) 2.5, Baso % (Auto) 0.4, Absolute Neuts (auto) 3.2, Absolute Lymphs (auto) 2.74, Nucleated RBC % 0, Sodium 141, Potassium 3.8, Chloride 106, Carbon Dioxide 23.9, Anion Gap 11, BUN 8, Creatinine 0.61 L, Estim Creat Clear Calc 118.55, Est GFR (MDRD) Non-Af 103, BUN/Creatinine Ratio 13.0, G lucose 242 H, Hemoglobin A1c 6.9, Calcium 9.0, Total Bilirubin 0.48, AST 18, ALT 20, Alkaline Phosphatase 61, Total Protein 6.0, Albumin 3.6, Globulin 2.4, Albumin/Globulin Ratio 1.5, Triglycerides 385 H, Cholesterol 129, LDL Cholesterol, Calc 1, VLDL Cholesterol 77 H, HDL Cholesterol 51, Cholesterol/HDL Ratio 2.54, TSH 5.550 H 07/24/24 06:22: POC Glucose 213 H Radiography Diagnostic Testing: Radiology Impression Brain CT 07/23/24 17:44 IMPRESSION: No acute intracranial finding. Reading Location: [facility] Head/Neck CTA 07/23/24 17:45 IMPRESSION: 1. No large vessel occlusion, aneurysm or AVM. 2. No significant stenosis or calcific plaque. Reading Location: [facility] Assessment & Plan Assessment/Plan (1) Vertigo: PLAN: Plan The patient is a 58 y/o F admitted with vertigo at 4:30 AM on the day of admission with dizzy feeling.. Started #1. Persistent vertiginous symptoms different than baseline previous vertigo with BPPV concerning for possible posterior CVA: Will admit to PCU to be cautious, will obtain MRI Brain, ECHO, PT/OT/Speech/Nutrition evaluation per protocol. Will allow permissive HTN, maintain on asa w/ FS x 1 now and then 81 mg following in AM, maintain on statin therapy, maintain on fall precautions. Mag, TSH, FLP, HgbA1c requested. Maintain on fall and aspiration precautions. Will have meclizine available but low threshold if necessary to attempt Valium as well pending response. #2. Diabetes mellitus type II: Holding dulaglutide injection and metformin, hemoglobin A1c requested per protocol, nutrition consulted per protocol, maintain on ADA diet, accu checks w/ ISS. #3. Anxiety and depression: We will continue patient home escitalopram regimen. #4. Hyperlipidemia: Continue home statin regimen. AM FLP. #5. Obesity: Weight loss and lifestyle changes encouraged. #6. OSIRIS: BiPAP nightly. #7. DVT prophylaxis: Lovenox. #8. CODE status: Patient HCPOA and living will are not in place but she notes her daughter if necessary would be her medical decision-maker if she was unable. Discussed CODE status at length including difference between FULL code, DNR-CCA and DNR-CC status. Following discussions about the differences in these status, requested Full Code status.
--- NOTE | 2024-07-24 10:04 | DCINST_ITS ---
Discharge Instructions Diet Discharge Diet: Low fat / Low cholesterol and 2000 mg Sodium Diet DC O2, CPAP, BIPAP needs Home O2 Discharge instructions: No Dressing / Incision Discharge Activity: Return to Normal Activity Weight Bearing Status: Weight bearing as tolerated Dressing / Incision Call your doctor if you observe: Fever of 101 or Higher, Coldness, Increased Pain, Numbness or Tingling, Change in Color, Inability to urinate, Inability to have a bowel movement, Shortness of breath, Dizziness, Fainting spells, Swelling in the ankles, Chest pain, Prolonged hiccupping, Increased palpitations (irregular heartbeat) and Calf discomfort Follow Up Care When: IN 2 WEEKS Test Results: Test results from this visit will be discussed in further detail at your follow- up appointment, if applicable. Discharge Plan Admission Admit Date/Time: 07/23/24 21:47 Primary Reason for Your Visit: Dizziness/vertigo, BPPV. Stroke ruled out Attending Provider: Rudy Manuel Primary Care Provider: Jeffry Moreira Consulting Providers: Ivett Boykin Instructions Additional Instructions / Restrictions: Outpatient occupational therapy for labyrinth canalith maneuver/therapy for BPPV Discharge Orders/Prescriptions Prescriptions: New rosuvastatin 20 mg tablet 20 mg PO QHS 30 Days Qty: 30 2RF Continued metformin 500 mg tablet 500 mg PO BID escitalopram oxalate 20 mg tablet 20 mg PO DAILY Trulicity 1.5 mg/0.5 mL pen injector 1.5 mg subcut QWEEK Discontinued rosuvastatin 10 mg tablet 10 mg PO QHS Referrals / Follow Up: Jeffry Moreira DO [Primary Care Provider] - Disposition Disposition (needs filled in before D/C Order can be placed): Home, Self Care
[2024-07-24] MEDS: Escitalopram Oxalate 20 MG Tablet PO (10:20)
[2024-07-24 11:20] VITALS: O2SAT 95
--- NOTE | 2024-07-24 11:41 | PCM.DC.SUM ---
Providers Date of Admission: 07/23/24 Date of Discharge: 07/24/24 Primary Care Physician: Dr. Jeffry Moreira, DO Reason For Visit: VERTIGO, ? TIA/CVA Diagnosis Discharge Diagnosis (1) Vertigo: Status: Acute Code(s): R42 - Dizziness and giddiness Plan The patient is a 58 y/o F admitted with vertigo at 4:30 AM on the day of admission with dizzy feeling. #1. Persistent vertiginous symptoms different than baseline previous vertigo with BPPV: Patient has history of chronic BPPV/vertigo for a long time. Usually she gets short-lived vertigo but this was prolonged and persistent. MRI brain shows no MR evidence of acute brain pathology. C8 CT angiogram shows no large vessel occlusion aneurysm or AVM. No significant stenosis or calcific plaque. She has meclizine at home. Prescription given for outpatient labyrinthine canalith maneuver. TSH elevated 5.55. Follow with follow with PCP for free T4 Patient had 2D echo which is negative for bubble contrast study. EF 60%. #2. Diabetes mellitus type II: Holding dulaglutide injection and metformin, hemoglobin A1c 6.9%. Glucose high in BMP to 842. Follow with PCP. #3. Anxiety and depression: continue patient home escitalopram regimen. #4. Hyperlipidemia: Fasting profile shows triglycerides 295, calculated LDL 1, TC 129. Rosuvastatin dose increased to 20 mg daily. #5. Obesity: Weight loss and lifestyle changes encouraged. #6. OSIRIS: BiPAP nightly. #7. DVT prophylaxis: Lovenox. #8. CODE status: Patient HCPOA and living will are not in place but she notes her daughter if necessary would be her medical decision-maker if she was unable. Discussed CODE status at length including difference between FULL code, DNR-CCA and DNR-CC status. Following discussions about the differences in these status, requested Full Code status. Discharge medication reconciliation done. Discharge follow-up instructions completed. Discharge process discussed with the patient and all questions were answered to patient's satisfaction. Follow with PCP in 1 to 2 weeks Total time spent, exact 35 minutes on discharge meds reconciliation, examination, coordination of care with nurses and ancillary staff, review of imaging and blood test and discussion with the patient on follow-up instructions. Medications at Discharge Home Medications dulaglutide 1.5 mg/0.5 mL subcutaneous pen injector (Trulicity) 1.5 mg subcut QWEEK 07/23/24 escitalopram oxalate 20 mg tablet 20 mg PO DAILY 07/23/24 metformin 500 mg tablet 500 mg PO BID DM 07/23/24 rosuvastatin 20 mg tablet 20 mg PO QHS 1 month #30 tabs 07/24/24 Physical Exam Narrative Seen and examined Dizziness/vertigo resolved. No focal neurological symptoms. No fever. Denies burning micturition/dysuria. Undergoing echo Physical exam General: Alert, Oriented x3, Cooperative HEENT: Atraumatic, PERRLA, EOMI, Normocephalic Oral: No Gingival or Mucosal Lesions/ Ulcerations Neck: Supple, No JVD, Negative Carotid Bruits Chest wall/Lungs: Air entry equal in bilateral lung bases. No crepitation/rhonchi Cardiovascular: Regular rate, Regular Rhythm, Normal S1, Normal S2, No M/G/R Abdomen: Bowel Sounds Present, Soft, Non Tender, Non-Distended : No dysuria. No renal angle tenderness. No suprapubic tenderness. Extremities: No edema, Capillary Refill Less than 3 Seconds Skin: No rashes, No breakdown Musculoskeletal: No Tenderness to Palpation of Joints or Extremities Neurological: Cranial nerves II-XII grossly intact, DTR 2+/4. No acute focal neurological deficit. Psych/Mental Status: Normal Affect, Appropriate. Weight / BMI Weight Weight: 215 lb 9.793 oz Body Mass Index (BMI) 34.7 ABG / Lab / Microbiology Data 07/24/24 05:35 07/24/24 05:35 Laboratory: Laboratory Results - last 24 hr 07/23/24 18:06: WBC 8.9, RBC 4.61, Hgb 14.5, Hct 42.9, MCV 93.1, MCH 31.5, MCHC 33.8, RDW Std Deviation 41.2, RDW Coeff of Mari 12.0, Plt Count 306, MPV 8.9, Immature Gran % (Auto) 0.500, Neut % (Auto) 56.7, Lymph % (Auto) 33.6, [place] % (Auto) 5.9, Eos % (Auto) 2.6, Baso % (Auto) 0.7, Absolute Neuts (auto) 5.0, Absolute Lymphs (auto) 2.98, Nucleated RBC % 0, PT 12.3, INR 0.9, APTT 26.1, Sodium 140, Potassium 3.9, Chloride 101, Carbon Dioxide 26.3, Anion Gap 13, BUN 7, Creatinine 0.56 L, Estim Creat Clear Calc 129.57, Est GFR (MDRD) Non-Af 106, BUN/Creatinine Ratio 13.0, Glucose 187 H, Calcium 10.1, Troponin T High Sens < 6 07/23/24 20:20: Troponin T Hi Sens 2 Hr < 6 07/23/24 22:10: Magnesium 1.6, Troponin T Hi Sens 4Hr < 6 07/23/24 23:11: POC Glucose 136 H 07/24/24 05:35: WBC 6.7, RBC 3.86 L, Hgb 12.3, Hct 36.8 L, MCV 95.3, MCH 31.9, MCHC 33.4, RDW Std Deviation 42.0, RDW Coeff of Mari 12.0, Plt Count 249, MPV 9.2, Immature Gran % (Auto) 0.600, Neut % (Auto) 48.5, Lymph % (Auto) 41.0, [place] % (Auto) 7.0, Eos % (Auto) 2.5, Baso % (Auto) 0.4, Absolute Neuts (auto) 3.2, Absolute Lymphs (auto) 2.74, Nucleated RBC % 0, Sodium 141, Potassium 3.8, Chloride 106, Carbon Dioxide 23.9, Anion Gap 11, BUN 8, Creatinine 0.61 L, Estim Creat Clear Calc 118.55, Est GFR (MDRD) Non-Af 103, BUN/Creatinine Ratio 13.0, Glucose 242 H, Hemoglobin A1c 6.9, Calcium 9.0, Total Bilirubin 0.48, AST 18, ALT 20, Alkaline Phosphatase 61, Total Protein 6.0, Albumin 3.6, Globulin 2.4, Albumin/Globulin Ratio 1.5, Triglycerides 385 H, Cholesterol 129, LDL Cholesterol, Calc 1, VLDL Cholesterol 77 H, HDL Cholesterol 51, Cholesterol/HDL Ratio 2.54, TSH 5.550 H 07/24/24 06:22: POC Glucose 213 H 07/24/24 11:41: POC Glucose 204 H Radiography Diagnostic Testing: Radiology Impression Brain CT 07/23/24 17:44 IMPRESSION: No acute intracranial finding. Reading Location: [facility] Head/Neck CTA 07/23/24 17:45 IMPRESSION: 1. No large vessel occlusion, aneurysm or AVM. 2. No significant stenosis or calcific plaque. Reading Location: [facility] Echocardiogram 07/23/24 22:39 Interpretation Summary Normal LV size. Left ventricular systolic function is normal. The left ventricular ejection fraction is 60 %. Bubble contrast study is negative for PFO/ASD. Ordering Physician: Ivett Boykin Referring Physician: Jeffry Moreira Performed By: Suzi Andrew RDCS Brain MRI 07/24/24 05:55 IMPRESSION: No MR evidence of acute brain pathology Reading Location[facility] [place] D/C Instructions Discharge Diet: Low fat / Low cholesterol and 2000 mg Sodium Diet Weight Bearing Status: Weight bearing as tolerated Call your doctor if you observe: Fever of 101 or Higher, Coldness, Increased Pain, Numbness or Tingling, Change in Color, Inability to urinate, Inability to have a bowel movement, Shortness of breath, Dizziness, Fainting spells, Swelling in the ankles, Chest pain, Prolonged hiccupping, Increased palpitations (irregular heartbeat) and Calf discomfort DC O2, CPAP, BIPAP Needs Home O2 Discharge instructions: No When: IN 2 WEEKS Meaningful Use Info Meaningful Use Meaningful Use Diagnoses (Choose all that apply): None applicable Ischemic Stroke Statin Dosing Therapy Reference: STATIN DOSE THERAPY REFERENCE: * Patients > 75 years receive moderate or high dose statin therapy. * Patients 75 years or YOUNGER should receive HIGH intensity statin dose unless contraindicated. You will be required to document reason for non-treatment if statin daily dose does not meet guidelines. HIGH DOSE STATIN THERAPY DAILY Atorvastatin > than or = to 40 mg Rosuvastatin > than or = to 20 mg Amlodipine + Atorvastatin > than or = to 2.5/40 mg Ezetimibe + Simvastatin 10/80 mg Simvastatin 80mg Discharge Plan Admission Admit Date/Time: 07/23/24 21:47 Primary Reason for Your Visit: Dizziness/vertigo, BPPV. Stroke ruled out Attending Provider: Rudy Manuel Primary Care Provider: Jeffry Moreira Consulting Providers: Ivett Boykin Instructions Additional Instructions / Restrictions: Outpatient occupational therapy for labyrinth canalith maneuver/therapy for BPPV Discharge Orders/Prescriptions Prescriptions: New rosuvastatin 20 mg tablet 20 mg PO QHS 30 Days Qty: 30 2RF Continued metformin 500 mg tablet 500 mg PO BID escitalopram oxalate 20 mg tablet 20 mg PO DAILY Trulicity 1.5 mg/0.5 mL pen injector 1.5 mg subcut QWEEK Discontinued rosuvastatin 10 mg tablet 10 mg PO QHS Referrals / Follow Up: Jeffry Moreira DO [Primary Care Provider] - Disposition Disposition (needs filled in before D/C Order can be placed): Home, Self Care Charges/Coding Visit Charges Inpatient E&M: 28880 Disch Hosp >30min
[2024-07-24 11:45] VITALS: BP 133/74; PULSE 91; RESP 16; TEMP 37.1; O2SAT 97
--- NOTE | 2024-07-24 12:05 | CASEMGMT ---
SW did not complete a PHQ 9 as per physician patient did not have a stroke or TIA. Alisha WORKMAN
[2024-07-24 12:24] VITALS: BMI 34.7
[2024-07-24 12:26] LABS: Bedside Glucose 204 mg/dL (74-106)
--- NOTE | 2024-07-24 13:24 | CASEMGMT ---
LUZ MARIA SHELBY NOTE: Discharge order is in. Per PT/OT verbal report, no additional therapy recommended at this time. Dr Manuel did give this RN AFSANEH a script for OP vestibular therapy for pt this AM for BPPV. LUZ MARIA SHELBY to room. Pt sitting up in bed. Introduced self and role. Pt states she has done OP vestibular therapy in the past. She states her symptoms have resolved at this time, but it does come and go. She states she will take the script to use if it returns, but she does not think she will need to. She is aware a new Rx has been sent to [facility] and states this can be picked up today. She denies having any discharge needs/concerns/questions. Jose David ORTEGA RN CM
== END 2024-07-24 11:33 | disposition home or self-care (01) ==
LOC: ED 22:01 → PCU 22:10
PROVIDERS: Admitting Provider Family Medicine; Emergency Provider Emergency Medicine; PCP Student in an Organized Health Care Education/Training Program; Visit Provider Internal Medicine
DX: R42 Dizziness and giddiness (principal); E11.9 Type 2 diabetes mellitus without complications; G47.33 Obstructive sleep apnea (adult) (pediatric); E78.5 Hyperlipidemia, unspecified; E07.9 Disorder of thyroid, unspecified; E66.9 Obesity, unspecified; F32.A Depression, unspecified; F41.9 Anxiety disorder, unspecified; Z79.84 Long term (current) use of oral hypoglycemic drugs; Z79.85 Long-term (current) use of injectable non-insulin antidiabetic drugs; Z79.899 Other long term (current) drug therapy; Z68.35 Body mass index [BMI] 35.0-35.9, adult
CPT/HCPCS: 36415; 70450; 70496; 70498; 70551; 80048; 80053; 80061; 82962; 83036; 83735; 84443; 84484; 85025; 85610; 85730; 93005; 93306; 94762; 96360; 96361; 97802; 99221; 99285; Q9967; A4216; G0378; J2405